=== PATIENT | female | born 1990 | race Caucasian/White ===

== ENCOUNTER 2023-09-30 13:40 | Emergency (ER) | payer OTHER ==
[2023-09-30] MEDS ORDERED: ORPHENADRINE 30 MG/ML 2 ML VIAL IVP STA (14:11)
[2023-09-30] MEDS ORDERED: KETOROLAC 15 MG/ML 1 ML VIAL IVP STA (14:11)
--- NOTE | 2023-09-30 14:29 | ED ---
General Adult HPI - General Chief complaint: Extremity Injury, Lower Stated complaint: lower back pain Time Seen by Provider: 09/30/23 13:58 Source: patient, RN notes reviewed Mode of arrival: ambulatory Limitations: no limitations - History of Present Illness Initial comments: 33-year-old female presents emergency Department with chief complaint of low back pain. Patient states started yesterday has significantly worsened. Patient denies any bowel, bladder incontinence or retention of diverticulitis procedure states there is some pain that radiates to her mid thighs. Patient states she is better if she is laying flat with her legs up her face she is sitting pushing up with her arms given her some self traction. She has no abdominal complaints no dysuria no other associated symptoms. - Related Data Previous Rx's Medication Instructions Recorded Cyclobenzaprine [Flexeril] 10 mg PO TID PRN #15 tab 09/30/23 Ketorolac [Toradol] 10 mg PO Q8HR #15 tab 09/30/23 predniSONE 50 mg PO DAILY #5 tab 09/30/23 Allergies Allergy/AdvReac Type Severity Reaction Status Date / Time No Known Allergies Allergy Verified 09/30/23 13:50 Review of Systems ROS Statement: Those systems with pertinent positive or pertinent negative responses have been documented in the HPI. ROS Other: All systems not noted in ROS Statement are negative. Past Medical History Past Medical History: No Reported History History of Any Multi-Drug Resistant Organisms: None Reported Past Surgical History: No Surgical Hx Reported Past Psychological History: No Psychological Hx Reported Smoking Status: Never smoker Past Alcohol Use History: None Reported Past Drug Use History: Marijuana General Exam Limitations: no limitations General appearance: alert, in no apparent distress Head exam: Present: atraumatic, normocephalic, normal inspection Respiratory exam: Present: normal lung sounds bilaterally. Absent: respiratory distress, wheezes, rales, rhonchi, stridor Cardiovascular Exam: Present: regular rate, normal rhythm, normal heart sounds. Absent: systolic murmur, diastolic murmur, rubs, gallop, clicks GI/Abdominal exam: Present: soft, normal bowel sounds. Absent: distended, tenderness, guarding, rebound, rigid Extremities exam: Present: other (Lower extremity strength equal bilaterally neurovascular intact) Back exam: Present: full ROM, tenderness, paraspinal tenderness. Absent: vertebral tenderness Neurological exam: Present: alert, reflexes normal. Absent: motor sensory deficit Course Vital Signs 09/30/23 09/30/23 13:48 15:45 Temperature 98 F 98.7 F Pulse Rate 97 71 Respiratory 20 18 Rate Blood Pressure 122/82 111/74 O2 Sat by Pulse 98 100 Oximetry Medical Decision Making - Medical Decision Making Was pt. sent in by a medical professional or institution (, DEISY, FRUIT FARMWORKER, urgent care, hospital, or [place] [facility] facility...) When possible be specific @ -No Did you speak to anyone other than the patient for history (EMS, parent, family, police, friend...)? What history was obtained from this source @ -No Did you review nursing and triage notes (agree or disagree)? Why? @ -I reviewed and agree with nursing and triage notes Were old charts reviewed (outside hosp., previous admission, EMS record, old EKG, old radiological studies, urgent care reports/EKG's, [place] [facility] facility records)? Report findings @ -No old charts were reviewed Differential Diagnosis (chest pain, altered mental status, abdominal pain women, abdominal pain men, vaginal bleeding, weakness, fever, dyspnea, syncope, headache, dizziness, GI bleed, back pain, seizure, CVA, palpatations, mental health, musculoskeletal)? @ -nDifferential Back Pain: Strain, zoster, cauda equina syndrome, epidural abscess, vertebral osteomyelitis, discitis, fracture, subluxation, disc herniation, DJD, spinal stenosis, dissection, AAA, pancreatitis, peptic ulcer disease, pyelonephritis, kidney stone, this is not meant to be an all-inclusive list.able EKG interpreted by me (3pts min.). @ -None X-rays interpreted by me (1pt min.). @ -X-ray lumbar spine shows no significant extremity changes CT interpreted by me (1pt min.). @ -None done U/S interpreted by me (1pt. min.). @ -None done What testing was considered but not performed or refused? (CT, X-rays, U/S, labs)? Why? @ -None What meds were considered but not given or refused? Why? @ -None Did you discuss the management of the patient with other professionals (professionals i.e. DEISY Barron, FRUIT FARMWORKER, lab, RT, psych nurse, social security assessor, environmental scientists, teacher, weapons electrical engineering officer, shoe caser)? Give summary @ -No Was smoking cessation discussed for >3mins.? @ -No Was critical care preformed (if so, how long)? @ -No Were there social determinants of health that impacted care today? How? (Homelessness, low income, unemployed, alcoholism, drug addiction, transportation, low edu. Level, literacy, decrease access to med. care, long-term, rehab)? @ -No Was there de-escalation of care discussed even if they declined (Discuss DNR or withdrawal of care, Hospice)? DNR status @ -No What co-morbidities impacted this encounter? (DM, HTN, Smoking, COPD, CAD, Cancer, CVA, ARF, Chemo, Hep., AIDS, mental health diagnosis, sleep apnea, morbid obesity)? @ -None Was patient admitted / discharged? Hospital course, mention meds given and route, prescriptions, significant lab abnormalities, going to OR and other pertinent info. @ -Discharge patient's friend is improved x-rays were unremarkable patient has no red flag symptoms. Undiagnosed new problem with uncertain prognosis? @ -No Drug Therapy requiring intensive monitoring for toxicity (Heparin, Nitro, Insulin, Cardizem)? @ -No Were any procedures done? @ -No Diagnosis/symptom? @ -Lumbar back pain strain Acute, or Chronic, or Acute on Chronic? @ -Acute Uncomplicated (without systemic symptoms) or Complicated (systemic symptoms)? @ -Uncomplicated Side effects of treatment? @ -No Exacerbation, Progression, or Severe Exacerbation? @ -No Poses a threat to life or bodily function? How? (Chest pain, [place], [place], pneumonia, PE, COPD, DKA, ARF, appy, cholecystitis, CVA, Diverticulitis, Homicidal, Suicidal, threat to staff... and all critical care pts) @ -No Disposition Clinical Impression: Lumbar strain Disposition: HOME SELF-CARE Condition: Stable Instructions (If sedation given, give patient instructions): Low Back Strain (ED) Additional Instructions: Please return to the Emergency Department if symptoms worsen or any other concerns. Prescriptions: Cyclobenzaprine [Flexeril] 10 mg PO TID PRN #15 tab PRN Reason: Muscle Spasm predniSONE 50 mg PO DAILY #5 tab Ketorolac [Toradol] 10 mg PO Q8HR #15 tab Is patient prescribed a controlled substance at d/c from ED?: No Referrals: None,Stated [Primary Care Provider] - 1-2 days Time of Disposition: 15:39
--- NOTE | 2023-09-30 15:10 | XR ---
Lumbar spine HISTORY: Back pain COMPARISON: None TECHNIQUE: 3 views lumbar spine were obtained FINDINGS: The lumbar vertebral segments are normal in height and alignment and there is no fracture or subluxat ion The disc spaces well-maintained. The facet joints are intact. There is no spondylolisthesis. IMPRESSION: No significant abnormality seen.
[2023-09-30] MEDS ORDERED: HYDROmorphone 0.5 MG/0.5 ML SYRINGE IVP STA (15:37)
[2023-09-30] MEDS ORDERED: ONDANSETRON 4 MG/2 ML VIAL IVP STA (15:37)
[2023-09-30] MEDS ORDERED: ACET/COD 300 MG/30 MG STARTER PACK 6 TAB BTL PO STA (15:37)
[2023-09-30] MEDS ORDERED: methylPREDNISolone SOD SUCCI 125 MG/2 ML VIAL IV STA (15:37)
[2023-09-30 16:05] VITALS: BP 111/74; PULSE 71; RESP 18; TEMP 98.7
== END 2023-09-30 15:55 | disposition home or self-care (01) ==
LOC: EC 13:40
DX: S39.012A Strain of muscle, fascia and tendon of lower back, initial encounter (principal); F12.90 Cannabis use, unspecified, uncomplicated; X50.9XXA Other and unspecified overexertion or strenuous movements or postures, initial encounter
CPT/HCPCS: 72100; 99283; 96374; 96375 ×4; J2360; J2930; J2405; J1885; J1170

== ENCOUNTER 2024-01-25 14:16 | Emergency (ER) | payer OTHER ==
--- NOTE | 2024-01-25 14:42 | ED ---
Upper Extremity HPI - General Stated Complaint: Dog bite Time Seen by Provider: 01/25/24 14:42 Source: patient, RN notes reviewed - History of Present Illness Initial Comments: Patient is a 34-year-old female presented to ER with a chief complaint of a cat bite. Patient states her cat bit her 2 days ago. She is now endorsing swelling over left second digit. Patient sent here for PCP for further evaluation. She also reports cat bit her right forearm. Denies any fevers or chills. - Related Data Previous Rx's Medication Instructions Recorded Cyclobenzaprine [Flexeril] 10 mg PO TID PRN #15 tab 09/30/23 Ketorolac [Toradol] 10 mg PO Q8HR #15 tab 09/30/23 predniSONE 50 mg PO DAILY #5 tab 09/30/23 Amoxic-Pot Clav 875-125Mg 1 tab PO Q12HR 7 Days #14 tab 01/25/24 [Augmentin 875-125] Allergies Allergy/AdvReac Type Severity Reaction Status Date / Time No Known Allergies Allergy Verified 09/30/23 13:50 Review of Systems ROS Statement: Those systems with pertinent positive or pertinent negative responses have been documented in the HPI. ROS Other: All systems not noted in ROS Statement are negative. Past Medical History Past Medical History: No Reported History History of Any Multi-Drug Resistant Organisms: None Reported Past Surgical History: No Surgical Hx Reported Past Psychological History: No Psychological Hx Reported Smoking Status: Never smoker Past Alcohol Use History: None Reported Past Drug Use History: Marijuana General Exam - General Exam Comments Initial Comments: Visual Physical Exam Vital signs reviewed General: Well-appearing, nontoxic, no acute distress. Head: Normocephalic, atraumatic Eyes: PERRLA, EOMI ENT: Airway patent Chest: Nonlabored breathing Skin: No visual rash, normal skin tone, edema and erythema to left second digit Neuro: Alert and oriented 3 Musculoskeletal: No gross abnormalities General appearance: alert, in no apparent distress Head exam: Present: atraumatic, normocephalic, normal inspection Respiratory exam: Present: normal lung sounds bilaterally. Absent: respiratory distress, wheezes, rales, rhonchi, stridor Cardiovascular Exam: Present: regular rate, normal rhythm, normal heart sounds. Absent: systolic murmur, diastolic murmur, rubs, gallop, clicks Extremities exam: Present: other (Moderate edema and erythema to left second MCP joint. Limited range of motion due to swelling. 2 puncture wounds to palmar side. No purulent drainage. Sensation intact. 2+ bilateral radial pulse.) Neurological exam: Present: alert, oriented X3, CN II-XII intact Psychiatric exam: Present: normal affect, normal mood Skin exam: Present: warm, dry, intact, normal color, other (Puncture wounds to lower right forearm. No purulent drainage. Surrounding erythema present.). Absent: rash Course Vital Signs 01/25/24 15:39 Temperature 98.9 F Pulse Rate 54 L Respiratory 20 Rate Blood Pressure 131/89 O2 Sat by Pulse 99 Oximetry Medical Decision Making - Medical Decision Making I performed the quick note portion of this chart. Electronically signed by Cassia Hartmann PA-C Was pt. sent in by a medical professional or institution (DEISY Barron, [employer] FR[employer] END WEB DEVELOPER, urgent care, hospital, or [facility]...) When possible be specific @ -No Did you speak to anyone other than the patient for history (EMS, parent, family, police, friend...)? What history was obtained from this source @ -No Did you review nursing and triage notes (agree or disagree)? Why? @ -I reviewed and agree with nursing and triage notes Were old charts reviewed (outside hosp., previous admission, EMS record, old EKG, old radiological studies, urgent care reports/EKG's, [facility] records)? Report findings @ -No old charts were reviewed Differential Diagnosis (chest pain, altered mental status, abdominal pain women, abdominal pain men, vaginal bleeding, weakness, fever, dyspnea, syncope, headache, dizziness, GI bleed, back pain, seizure, CVA, palpatations, mental health, musculoskeletal)? @ -Differential Musculoskeletal Muscular strain, contusion, ligament sprain, fracture, arthritis, septic arthritis, bursitis, cellulitis, muscle spasm, nerve compression, DVT, arterial occlusion, herpes zoster, electrolyte abnormality, tumor.... This is not meant to be in all inclusive list EKG interpreted by me (3pts min.). @ -None X-rays interpreted by me (1pt min.). @ -Left hand x-ray interpreted by me shows no acute fractures, dislocations or radiopaque foreign bodies. CT interpreted by me (1pt min.). @ -None done U/S interpreted by me (1pt. min.). @ -None done What testing was considered but not performed or refused? (CT, X-rays, U/S, labs)? Why? @ -None What meds were considered but not given or refused? Why? @ -None Did you discuss the management of the patient with other professionals (professionals i.e. , PA, [employer] FR[employer] END WEB DEVELOPER, lab, RT, psych nurse, social research assistant, financial administrator, teacher, loan officer assistant, director of casework)? Give summary @ -No Was smoking cessation discussed for >3mins.? @ -No Was critical care preformed (if so, how long)? @ -No Were there social determinants of health that impacted care today? How? (Homelessness, low income, unemployed, alcoholism, drug addiction, transportation, low edu. Level, literacy, decrease access to med. care, senior living, rehab)? @ -No Was there de-escalation of care discussed even if they declined (Discuss DNR or withdrawal of care, Hospice)? DNR status @ -No What co-morbidities impacted this encounter? (DM, HTN, Smoking, COPD, CAD, Cancer, CVA, ARF, Chemo, Hep., AIDS, mental health diagnosis, sleep apnea, morb id obesity)? @ -None Was patient admitted / discharged? Hospital course, mention meds given and route, prescriptions, significant lab abnormalities, going to OR and other pertinent info. @ -Discharge. Patient is a 34-year-old female presented to ER with a chief complaint of a cat bite. History and physical exam completed. Vital stable. Patient no signs of acute distress. Patient's bilateral upper extremities neurovascular intact. Patient did have moderate swelling to left second MCP joint. Surrounding erythema present. No drainage. Patient had limited range of motion due to swelling. Denies any paresthesias. Tetanus updated. Prescribed Augmentin. Strict return parameters were discussed. Patient discharged in stable condition with follow-up to PCP. Patient expressed understanding and agreement with care plan. Undiagnosed new problem with uncertain prognosis? @ -No Drug Therapy requiring intensive monitoring for toxicity (Heparin, Nitro, Insulin, Cardizem)? @ -No Were any procedures done? @ -No Diagnosis/symptom? @ -Cellulitis/cat bite Acute, or Chronic, or Acute on Chronic? @ -Acute Uncomplicated (without systemic symptoms) or Complicated (systemic symptoms)? @ -Uncomplicated Side effects of treatment? @ -No Exacerbation, Progression, or Severe Exacerbation? @ -No Poses a threat to life or bodily function? How? (Chest pain, [place], [place], pneumonia, PE, COPD, DKA, ARF, appy, cholecystitis, CVA, Diverticulitis, Homicidal, Suicidal, threat to staff... and all critical care pts) @ -No - Radiology Data Radiology results: report reviewed, image reviewed Disposition Clinical Impression: Cat bite, Cellulitis Disposition: HOME SELF-CARE Condition: Stable Instructions (If sedation given, give patient instructions): Animal Bite (ED) Additional Instructions: Please complete full course of Augmentin. Please have a low threshold to return to the ER. Prescriptions: Amoxic-Pot Clav 875-125Mg [Augmentin 875-125] 1 tab PO Q12HR 7 Days #14 tab Is patient prescribed a controlled substance at d/c from ED?: No Referrals: Danette Patiño DO [Primary Care Provider] - 1-2 days Time of Disposition: 16:24
[2024-01-25 15:58] VITALS: TEMP 98.9
--- NOTE | 2024-01-25 16:03 | XR ---
EXAMINATION TYPE: XR hand complete 3 views LT DATE OF EXAM: 01/25/2024 Comparison: None Clinical History: 34-year-old female with pain after cat bite at the second MCP joint Findings: There is some soft tissue swelling centered about the second MCP joint and proximal index finger. No retained radiopaque foreign body is seen. No acute fracture, subluxation, dislocation. No soft tissue air. No erosive change. Impression: Soft tissue swelling at the base and proximal aspect of the index finger. No underlying acute osseous abnormality seen. No retained radiopaque foreign body.
[2024-01-25] MEDS: DIPH,PERTUS(ACELL)TETVAC-LF 0.5 ML VIAL IM ONE (16:41)
[2024-01-25 17:09] VITALS: BP 122/64; PULSE 74; RESP 18
== END 2024-01-25 16:45 | disposition home or self-care (01) ==
LOC: EC 14:16
DX: S51.851A Open bite of right forearm, initial encounter (principal); L03.114 Cellulitis of left upper limb; F12.90 Cannabis use, unspecified, uncomplicated; Z23 Encounter for immunization; W55.01XA Bitten by cat, initial encounter
CPT/HCPCS: 90471; 90715; 99283

== ENCOUNTER 2024-12-02 06:00 | Inpatient (IN) | payer OTHER ==
[2024-12-02] MEDS ORDERED: CARBOPROST TROMETHAMINE 250 MCG/ML 1 ML AMP IM PRN (06:49)
[2024-12-02] MEDS ORDERED: OXYTOCIN 10 UNIT/ML 1 ML VIAL IM PRN (06:49)
[2024-12-02] MEDS ORDERED: TERBUTALINE 1 MG/ML VIAL SQ PRN (06:49)
[2024-12-02] MEDS ORDERED: METHYLERGONOVINE 0.2 MG/ML 1 ML AMP IM PRN (06:49)
[2024-12-02] MEDS ORDERED: miSOPROStoL 200 MCG TAB RECTAL PRN (06:49)
[2024-12-02] MEDS ORDERED: TRANEXAMIC 1,000 MG/100ML-NACL 1,000 MG in EMPTY BAG 1 BAG IV PRN (06:49)
[2024-12-02] MEDS ORDERED: LIDOCAINE 0.5% (PF) 5 MG/ML (50 ML SDV) SQ PRN (06:49)
[2024-12-02] MEDS ORDERED: miSOPROStoL 200 MCG TAB PO PRN (06:49)
[2024-12-02 06:54] LABS: Glucose,Whole Blood 79 mg/dL (70-110)
[2024-12-02 06:57] VITALS: RESP 16
[2024-12-02] MEDS: OXYTOCIN 30 UNITS/500 ML NS 30 UNIT in SALINE 1 500ML.BAG IV SCH (07:22)
[2024-12-02] MEDS: LACTATED RINGERS 1,000 ML IV SCH (07:23)
[2024-12-02 07:30] LABS: Basophils # (A) 0.1 k/uL (0-0.2); Basophils % (A) 1 %; Eosinophils # (A) 0.1 k/uL (0-0.7); Eosinophils % (A) 1 %; HCT 31.7 % (34.0-46.0); HGB 10.5 gm/dL (11.4-16.0); Lymphocytes # (A) 2.9 k/uL (1.0-4.8); Lymphocytes % (A) 33 %; MCV 84.9 fL (80.0-100.0); Mean Platelet Volume 10.4; Monocytes # (A) 0.6 k/uL (0-1.0); Monocytes % (A) 7 %; Neutrophils # (A) 5.1 k/uL (1.3-7.7); Neutrophils % (A) 58 %; Platelet Count 207 k/uL (150-450); RBC 3.73 m/uL (3.80-5.40); RDW 12.3 % (11.5-15.5); WBC 8.9 k/uL (3.8-10.6)
[2024-12-02 07:48] LABS: Amphetamine Screen,Urine Not Detected (NotDetected); Barbiturate Screen,Urine Not Detected (NotDetected); Benzodiazepines Screen,Urine Not Detected (NotDetected); Cocaine Screen,Urine Not Detected (NotDetected); Methadone Screen, Urine Not Detected (NotDetected); Opiate Screen,Urine Not Detected (NotDetected); Oxycodone Screen, Urine Not Detected (NotDetected); Phencyclidine Screen,Urine Not Detected (NotDetected); Tricyclic Antidepressant,Urine Not Detected (NotDetected); Urn Cannabinoid Scrn Detected (NotDetected)
--- NOTE | 2024-12-02 08:41 | P.HPOB ---
History of Present Illness H&P Date: 12/02/24 Chief Complaint: Medical induction of labor Ms. Jimenez is a 34 year old at 39 weeks gestation with EDC of 12/09/2024 by LMP consistent with 9 week US who presents for medical induction of labor for GDMA2 on insulin. Her regimen has been 10u of NPH BID, which she duong s been moderately well controlled on with some elevated midday blood sugars. The fetus has undergone surveillance which has been reassuring. The fetus is estimated at 7 pounds and 15 ounces based on a 37 week growth US. Obstetric history: 1 FTVD, induced for post-dates gestation work-up: blood type O positive, antibody screen negative, rubella immune, VDRL non-reactive, HBsAg negative, HIV negative, HCV Ab non-reactive, gonorrhea negative, chlamydia negative, GBS negative. Past Medical History Past Medical History: No Reported History History of Any Multi-Drug Resistant Organisms: None Reported Past Surgical History: No Surgical Hx Reported Past Anesthesia/Blood Transfusion Reactions: No Reported Reaction Past Psychological History: Anxiety, Depression Smoking Status: Current every day smoker Past Alcohol Use History: None Reported Past Drug Use History: Marijuana - Past Family History Father Family Medical History: Diabetes Mellitus Mother Family Medical History: Thyroid Disorder Medications and Allergies Home Medications Medication Instructions Recorded Confirmed Type Escitalopram [Lexapro] 1 tab PO DAILY 12/02/24 12/02/24 History Insulin Lispro 10 units SQ BID 12/02/24 12/02/24 History Vit No.179/Iron/Folic 1 tab PO DAILY 12/02/24 12/02/24 History [ Tablet] Allergies Allergy/AdvReac Type Severity Reaction Status Date / Time No Known Allergies Allergy Verified 12/02/24 06:44 Exam Vital Signs Temp Pulse Resp BP Pulse Ox 12/02/24 06:52 96.8 F L 85 16 116/72 96 Intake and Output 12/01/24 12/02/24 12/02/24 22:59 06:59 14:59 Other: Weight 68.946 kg Focused physical exam is performed. This is a healthy-appearing in no apparent distress. Breathing is non-labored. Abdomen is gravid and non-tender. Cervical exam is 4/80/-3. AROM is undertaken with clear fluid noted. Extremities non-tender and non-edematous. heart tones are Category I and tocometer is graphing contractions every 2-4 minutes. Results Result Diagrams: 12/02/24 07:05 Abnormal Lab Results - Last 24 Hours (Table) 12/02/24 12/02/24 Range/Units 06:30 07:05 RBC 3.73 L (3.80-5.40) m/uL Hgb 10.5 L (11.4-16.0) gm/dL Hct 31.7 L (34.0-46.0) % U Marijuana (THC) Screen Detected H (NotDetected) Assessment and Plan Assessment: 34 year old at 39 weeks being medically induced for GDMA2 Plan: Admit, clear liquid diet, BS checks every 4 hours, pitocin per protocol, epidural prn, continuous EFM and tocometer. Anticipate vaginal delivery.
[2024-12-02] MEDS ORDERED: SIMETHICONE 80 MG CHEWABLE PO PRN (10:28)
[2024-12-02] MEDS ORDERED: ZOLPIDEM 5 MG TAB PO PRN (10:28)
[2024-12-02] MEDS ORDERED: LANOLIN CREAM 1 GM TUBE TOPICAL PRN (10:28)
[2024-12-02] MEDS ORDERED: BENZOCAINE/MENTHOL SPRAY 1 GM/SPRAY AEROSOL TOPICAL PRN (10:28)
[2024-12-02] MEDS ORDERED: diphenhydrAMINE 25 MG CAP PO PRN (10:28)
[2024-12-02] MEDS ORDERED: diphenhydrAMINE 50 MG/ML 1 ML VIAL IVP PRN ×2 (10:28)
[2024-12-02] MEDS ORDERED: HYDROCORTISONE 2.5% RECTAL CREAM 30 GM TUBE RECTAL PRN (10:28)
[2024-12-02] MEDS ORDERED: diphenhydrAMINE 50 MG CAP PO PRN (10:28)
--- NOTE | 2024-12-02 10:28 | P.PROBDLV ---
Vaginal Delivery Note - . Vaginal Delivery Note: DATE OF SERVICE: 12/02/2024 PROCEDURE: Normal Vaginal Delivery ATTENDING: Dr. April Farr MD ESTIMATED BLOOD LOSS: 100 mL FINDINGS: VMI, Apgars 6/7/8. Weight 7 pounds and 6 ounces (3340 grams) PROCEDURE: Ms. Jimenez is a 34 year old at 39 weeks presenting to labor and delivery for medical induction of labor. The has been complicated by GDMA2 on insulin. For further details, please review the admitting H&P. Pitocin was titrated per protocol. AROM was undertaken at 831 revealing clear amniotic fluid. The patient was completely dilated at 955. She pushed effectively with category I heart tones. A viable male was delivered at 1007. The was placed on the maternal abdomen and bulb suctioned. Cord was clamped and cut after a 30-second delay. The was handed off to the pediatric team. Placenta was delivered whole with gentle cord traction at 1007. Oxytocin was started to facilitate uterine tone. Uterine fundus was found to be firm and below the umbilicus upon fundal massage. Thorough examination of the cervix, vagina, periurethral area, and perineum revealed no lacerations. The patient is stable and allowed to begin the bonding process.
[2024-12-02] MEDS: IBUPROFEN 800 MG TAB PO SCH (10:40)
[2024-12-02 12:43] LABS: Glucose,Whole Blood 84 mg/dL (70-110)
[2024-12-02] MEDS: ACETAMINOPHEN TAB 500 MG TAB PO SCH (16:46)
[2024-12-02] MEDS: SENNOSIDES-DOCUSATE SODIUM 1 EACH TAB PO SCH (20:30)
[2024-12-03 05:42] LABS: Glucose,Whole Blood 83 mg/dL (70-110)
[2024-12-03 05:55] LABS: Basophils # (A) 0.1 k/uL (0-0.2); Basophils % (A) 1 %; Eosinophils # (A) 0.2 k/uL (0-0.7); Eosinophils % (A) 2 %; HGB 9.5 gm/dL (11.4-16.0); Lymphocytes # (A) 2.7 k/uL (1.0-4.8); Lymphocytes % (A) 22 %; MCHC 32.7 g/dL (31.0-37.0); MCV 85.5 fL (80.0-100.0); Mean Platelet Volume 9.9; Monocytes # (A) 0.5 k/uL (0-1.0); Monocytes % (A) 4 %; Neutrophils # (A) 8.9 k/uL (1.3-7.7); Neutrophils % (A) 71 %; Platelet Count 209 k/uL (150-450); RBC 3.39 m/uL (3.80-5.40); RDW 12.5 % (11.5-15.5); WBC 12.5 k/uL (3.8-10.6)
--- NOTE | 2024-12-03 08:50 | P.DS ---
Providers Date of admission: 12/02/24 06:15 Expected date of discharge: 12/03/24 Attending physician: April Farr MD Primary care physician: Stated None Hospital Course: Ms. Jimenez is a 34 year old now PPD#1 s/p after medical induction of labor at 39 weeks for gestational diabetes. The patient is doing well this morning and had no acute events overnight. She has no complaints this morning. She reports minimal lochia, passing flatus, voiding without difficulty, ambulating, and eating/drinking without nausea or vomiting. Infant doing well at bedside, s/p circumcision. She denies chest pain, shortness of breathing, fevers, or chills overnight. She denies pain or swelling in the legs. restrictions are reviewed with the patient including pelvic rest for 6 weeks. The patient is encouraged to call the office if she experiences any heavy bleeding, foul-smelling discharge, breast complaints, or any if she has any other concerns. She will follow up in the office with in 6 weeks for postoperative exam. All questions are answered. Assessment: 34 year old now PPD#1 s/p Patient Condition at Discharge: Good Plan - Discharge Summary New Discharge Prescriptions: No Action Vit No.179/Iron/Folic [ Tablet] 1 tab PO DAILY Insulin Lispro 10 units SQ BID Escitalopram [Lexapro] 1 tab PO DAILY Discharge Medication List Escitalopram [Lexapro] 1 tab PO DAILY 12/02/24 [History] Insulin Lispro 10 units SQ BID 12/02/24 [History] Vit No.179/Iron/Folic [ Tablet] 1 tab PO DAILY 12/02/24 [History] Follow up Appointment(s)/Referral(s): April Farr MD [STAFF PHYSICIAN] - 01/12/25 1:15 pm Activity/Diet/Wound Care/Special Instructions: Instructions 1. Do not begin any exercise program for 3 weeks. 2. Do not resume sexual relations for 6 weeks or longer if uncomfortable. 3. You may take tub baths or showers at any time. 4. You may use tampons if desired after 6 weeks. 5. Keep any areas repaired with stitches clean and dry. 6. If you are not nursing, wear a good fitting, supportive bra during the day and limit fluid intake for at least 1 week to prevent breast engorgement. 7. Call the office, , within the next week to make appointment for your 6 week checkup if it has not already been made. 8. Report any of the following occurrences to the doctor promptly: a. Heavy, excessive bleeding b. Chills, fever c. Burning or frequency of urination d. Pain or redness and breasts if nursing e. Increasing pain or swelling of vulva (stitches). In addition to the above instructions, the following additional should be followed: 1. No heavy lifting or straining (exercising) until after 6 week checkup. 2. Keep abdominal incision clean and dry: You may wear a dressing if more comfortable. 3. Make office appointment for 2 weeks after delivery date. Discharge Disposition: HOME SELF-CARE
[2024-12-03 16:33] VITALS: BP 116/64; PULSE 57; TEMP 98.3
== END 2024-12-03 18:14 | disposition home or self-care (01) | DRG 807 ==
LOC: 4FBP 06:15
PROVIDERS: ADMIT Obstetrics & Gynecology; ATTEND Obstetrics & Gynecology
PROC: 10E0XZZ Delivery of Products of Conception, External Approach (ICD-10-PCS; principal; 2024-12-02)
PROC: 10907ZC Drainage of Amniotic Fluid, Therapeutic from Products of Conception, Via Natural or Artificial Opening (ICD-10-PCS; 2024-12-02)
PROC: 3E033VJ Introduction of Other Hormone into Peripheral Vein, Percutaneous Approach (ICD-10-PCS; 2024-12-02)
PROC: 4A1HXCZ Monitoring of Products of Conception, Cardiac Rate, External Approach (ICD-10-PCS; 2024-12-02)
DX: O24.424 Gestational diabetes mellitus in childbirth, insulin controlled (principal); Z37.0 Single live birth; O99.334 Smoking (tobacco) complicating childbirth; O99.344 Other mental disorders complicating childbirth; Z3A.39 39 weeks gestation of pregnancy; F41.9 Anxiety disorder, unspecified; F32.A Depression, unspecified; F17.210 Nicotine dependence, cigarettes, uncomplicated
CPT/HCPCS: 80306; 85025; 86850; 86900; 86901

== ENCOUNTER 2024-12-08 12:10 | Emergency (ER) | payer OTHER ==
--- NOTE | 2024-12-08 13:35 | ED ---
Female Urogenital HPI - General Source: patient, RN notes reviewed Mode of arrival: ambulatory Limitations: no limitations <Richard Bernabe - Last Filed: 12/08/24 13:34> - General Source: patient, RN notes reviewed, old records reviewed (12/02/24) Mode of arrival: ambulatory Limitations: no limitations <Ana Hartmann - Last Filed: 12/09/24 22:18> - General Chief complaint: Urogenital Stated complaint: possible uteran prolapse Time Seen by Provider: 12/08/24 12:29 - History of Present Illness Initial comments: Quick note 34-year-old female presents emergency department chief complaint of concern of uterine prolapse. Patient states she had a vaginal delivery on December 02 her [facility] INSPECTOR is Dr. Amanda Tinoco. Patient states that she is felt some bulging, noticed something. She attempted to contact [facility] INSPECTOR no answer and came to emergency department. Patient states she is G2, (Richard Bernabe) 34-year-old female presented to the ER for evaluation of possible uterine prolapse. Patient is G2, P2 approximately 6 days post vaginal delivery with Dr. Farr. Patient states when attempting to have a bowel movement today and believes she pushed too hard causing her uterus to prolapase as she felt a buldge coming from her vagina. She states she was able to reduce it on her own by pushing it back up. She attempted to contact [facility] INSPECTOR for instructions but was unable to contact them prompting her ER visit. She denies a history of uterine prolapse. Patient reports mild bleeding since incident patient has been taking laxatives and stool softeners for bowel movements. She denies any abdominal pain, nausea, vomiting, urinary complaints or other complaints. (Ana Hartmann) - Related Data Home Medications Medication Instructions Recorded Confirmed Escitalopram [Lexapro] 1 tab PO DAILY 12/02/24 12/02/24 Insulin Lispro 10 units SQ BID 12/02/24 12/02/24 Vit No.179/Iron/Folic 1 tab PO DAILY 12/02/24 12/02/24 [ Tablet] Allergies Allergy/AdvReac Type Severity Reaction Status Date / Time No Known Allergies Allergy Verified 12/08/24 13:32 Review of Systems ROS Other: All systems not noted in ROS Statement are negative. <Richard Bernabe - Last Filed: 12/08/24 13:34> ROS Other: All systems not noted in ROS Statement are negative. <Ana Hartmann - Last Filed: 12/09/24 22:18> ROS Statement: Those systems with pertinent positive or pertinent negative responses have been documented in the HPI. Past Medical History Past Medical History: No Reported History History of Any Multi-Drug Resistant Organisms: None Reported Past Surgical History: No Surgical Hx Reported Past Anesthesia/Blood Transfusion Reactions: No Reported Reaction Past Psychological History: Anxiety, Depression Smoking Status: Current every day smoker Past Alcohol Use History: None Reported Past Drug Use History: Marijuana - Past Family History Father Family Medical History: Diabetes Mellitus Mother Family Medical History: Thyroid Disorder <Richard Bernabe - Last Filed: 12/08/24 13:34> General Exam Limitations: no limitations General appearance: alert, in no apparent distress <Richard Bernabe - Last Filed: 12/08/24 13:34> General appearance: alert, in no apparent distress Respiratory exam: Present: normal lung sounds bilaterally. Absent: respiratory distress, wheezes, rales, rhonchi, stridor Cardiovascular Exam: Present: regular rate, normal rhythm, normal heart sounds. Absent: systolic murmur, diastolic murmur, rubs, gallop, clicks GI/Abdominal exam: Present: soft, normal bowel sounds. Absent: distended, tenderness, guarding, rebound, rigid External exam: Present: normal external exam Speculum exam: Present: vaginal bleeding (Minimal cervical discharge. There is no active prolapse on exam or with bearing down) By manual exam: Present: normal by manual exam Neurological exam: Present: alert, oriented X3, CN II-XII intact Skin exam: Present: warm, dry, intact, normal color. Absent: rash <Ana Hartmann - Last Filed: 12/09/24 22:18> - General Exam Comments Initial Comments: Visual Physical Exam Vital signs reviewed General: Well-appearing, nontoxic, no acute distress. Head: Normocephalic, atraumatic Eyes: PERRLA, EOMI ENT: Airway patent Chest: Nonlabored breathing Skin: No visual rash, normal skin tone Neuro: Alert and oriented 3 Musculoskeletal: No gross abnormalities (Richard Bernabe) Course <Ana Hartmann - Last Filed: 12/09/24 22:18> Vital Signs 12/08/24 12/08/24 13:29 14:45 Temperature 98.4 F 97.9 F Pulse Rate 96 85 Respiratory 20 18 Rate Blood Pressure 118/61 106/72 O2 Sat by Pulse 96 97 Oximetry - Reevaluation(s) Reevaluation #1: 12/08/24 14:00 Pelvic exam performed and chaperoned by Martín Damico LPN 12/08/24 14:10 Case discussed with CODE INSPECTOR, Dr. Farr who advised on outpatient management. (Ana Hartmann) Medical Decision Making <Richard Bernabe - Last Filed: 12/08/24 13:34> <Ana Hartmann - Last Filed: 12/09/24 22:18> - Medical Decision Making I completed the quick note portion of this chart signed Richard Bernabe PA-C (Richard Bernabe) Was pt. sent in by a medical professional or institution (, [facility], [facility]IST[facility]OLF COACH, urgent care, hospital, or correction...) When possible be specific @ -No Did you speak to anyone other than the patient for history (EMS, parent, family, police, friend...)? What history was obtained from this source @ -No Did you review nursing and triage notes (agree or disagree)? Why? @ -I reviewed and agree with nursing and triage notes Were old charts reviewed (outside hosp., previous admission, EMS record, old EKG, old radiological studies, urgent care reports/EKG's, correction records)? Report findings @ - I reviewed notes from 12/02/24 patient had vaginal delivery with Dr. Farr. Differential Diagnosis (chest pain, altered mental status, abdominal pain women, abdominal pain men, vaginal bleeding, weakness, fever, dyspnea, syncope, headache, dizziness, GI bleed, back pain, seizure, CVA, palpatations, mental health, musculoskeletal)? @ -Uterine prolapse, dysmenorrhea, retained products of conception... This list is not meant to be all-inclusive EKG interpreted by me (3pts min.). @ -None done X-rays interpreted by me (1pt min.). @ -None done CT interpreted by me (1pt min.). @ -None done U/S interpreted by me (1pt. min.). @ -None done What testing was considered but not performed or refused? (CT, X-rays, U/S, labs)? Why? @ -None What meds were considered but not given or refused? Why? @ -None Did you discuss the management of the patient with other professionals (professionals i.e. , PA, ASSISTANT GOLF COACH, lab, RT, psych nurse, social work job titles, complex care nurse, teacher, juvenile corrections officer, heel caser)? Give summary @ -Yes, case discussed with Dr. Farr who advised on outpatient management as she is still healing from vaginal delivery. She recommended stool softeners and laxatives for smoother bowel movements. Was smoking cessation discussed for >3mins.? @ -No Was critical care preformed (if so, how long)? @ -No Were there social determinants of health that impacted care today? How? (Homelessness, low income, unemployed, alcoholism, drug addiction, transportation, low edu. Level, literacy, decrease access to med. care, longterm, rehab)? @ -No Was there de-escalation of care discussed even if they declined (Discuss DNR or withdrawal of care, Hospice)? DNR status @ -No What co-morbidities impacted this encounter? (DM, HTN, Smoking, COPD, CAD, Cancer, CVA, ARF, Chemo, Hep., AIDS, mental health diagnosis, sleep apnea, morbid obesity)? @ -6 days from vaginal delivery. Was patient admitted / discharged? Hospital course, mention meds given and route, prescriptions, significant lab abnormalities, going to OR and other pertinent info. @ -Discharge. 34-year-old female presented to ER for evaluation of possible uterine prolapse. Patient is 6 days from vaginal delivery. Pelvic exam performed with no active prolapse. No prolapse with bearing down. Exam chaperoned by Martín Martínez LPN. Findings discussed with Dr. Farr who advised on outpatient management and reassurance. I discussed with patient to continue taking stool softeners and laxative for smoother bowel movements. I told her if this happens again she should reduce it. I also recommended close follow-up with CODE INSPECTOR by the end of the week. Strict return parameters discussed. Patient discharged in stable condition with follow-up to Dr. Farr. Patient verbally expressed understanding and agreement with care plan. Case discussed with ED attending, Dr. Camargo. Undiagnosed new problem with uncertain prognosis? @ -No Drug Therapy requiring intensive monitoring for toxicity (Heparin, Nitro, Insulin, Cardizem)? @ -No Were any procedures done? @ -No Diagnosis/symptom? @ -R/o uterine prolapse Acute, or Chronic, or Acute on Chronic? @ -Acute Uncomplicated (without systemic symptoms) or Complicated (systemic symptoms)? @ -Uncomplicated Side effects of treatment? @ -No Exacerbation, Progression, or Severe Exacerbation? @ -No Poses a threat to life or bodily function? How? (Chest pain, [place], [place], pneumonia, PE, COPD, DKA, ARF, appy, cholecystitis, CVA, Diverticulitis, Homicidal, Suicidal, threat to staff... and all critical care pts) @ -No (Ana Hartmann) Disposition <Richard Bernabe - Last Filed: 12/08/24 13:34> Is patient prescribed a controlled substance at d/c from ED?: No Time of Disposition: 14:39 <Ana Hartmann - Last Filed: 12/09/24 22:18> Clinical Impression: Uterine prolapse Disposition: HOME SELF-CARE Condition: Stable Instructions (If sedation given, give patient instructions): Perineal Care (DC), Uterine Prolapse (ED) Additional Instructions: Follow-up closely with Dr. Farr within the next 3 to 5 days. I recommend [id number] stool softeners and to avoid bearing down when having bowel mo vements. Return to the ER for any new or worsening concerns. Referrals: Danette Patiño DO [Primary Care Provider] - 1-2 days April Farr MD [STAFF PHYSICIAN] - 1-2 days
[2024-12-08 14:46] VITALS: BP 106/72; PULSE 85; RESP 18; TEMP 97.9
== END 2024-12-08 14:46 | disposition home or self-care (01) ==
LOC: EC 12:10
DX: N81.4 Uterovaginal prolapse, unspecified (principal); F17.200 Nicotine dependence, unspecified, uncomplicated
CPT/HCPCS: 99283